=== PATIENT | male | born 2000 | race Caucasian/White ===

== ENCOUNTER 2022-09-07 08:22 | Outpatient (CLI) | payer BC, SELFPAY | END 2022-09-07 08:23 | disposition home or self-care (01) | LOC: LKVREF 09-08 15:00 | PROVIDERS: PCP Family Medicine; Visit Provider Family Medicine | DX: R51.9 Headache, unspecified (principal); R53.83 Other fatigue; N39.0 Urinary tract infection, site not specified | CPT/HCPCS: 87086; 87186 ==